=== PATIENT | male | born 1995 | race Caucasian/White ===

== ENCOUNTER 2023-04-01 18:19 | Emergency (ER) | payer BC, SELFPAY ==
[2023-04-01 18:30] VITALS: BP 145/76; PULSE 112; RESP 18; TEMP 37; O2SAT 100
--- NOTE | 2023-04-01 18:41 | ED.URI ---
HPI - URI/Sore Throat General Chief Complaint: Upper Respiratory Infection Stated Complaint: Congestion,Cough,Headache Source: patient Mode of arrival: ambulatory Limitations: no limitations History of Present Illness HPI Narrative: 27-year-old male presents to [facility] with complaints of sinus pressure, headache, nasal congestion, body aches and dry cough for the past 2-3 days. Patient reports that his daughter recently had similar symptoms. Patient has been taking [id number] Mucinex and ibuprofen with minimal relief. Patient is a nonsmoker. Patient denies recent travel. Patient denies nausea vomiting, diarrhea, shortness of breath or wheezing. MD elicited complaint: rhinorrhea and nasal congestion Onset (ago): day(s) (3) Severity: mild Able to tolerate fluids by mouth: Yes Exacerbating factors: nothing Relieving factors: nothing Context: sick contacts Treatments prior to arrival: ibuprofen and cold medicine Related Data Home Medications Medication Instructions Recorded Confirmed fluoxetine 20 mg capsule 20 mg PO DAILY 04/01/23 04/01/23 Allergies Allergy/AdvReac Type Severity Reaction Status Date / Time No Known Allergies Allergy Unverified 05/09/18 14:15 Review of Systems Constitutional: Constitutional: Reports chills, Denies fatigue, Denies fever(s) and Denies weakness ENT: Denies vertigo, Denies dizziness, Denies epistaxis, Reports nasal congestion and Denies sore throat Cardiovascular: Cardiovascular: Denies chest pain Respiratory: Respiratory: Reports cough, Denies dyspnea and Denies wheezing Gastrointestinal: Gastrointestinal: Denies abdominal pain, Denies diarrhea, Denies nausea and Denies vomiting Genitourinary: Genitourinary: Denies dysuria Musculoskeletal: Musculoskeletal: Denies arthralgias and Denies joint swelling Integumentary/Breasts: Skin/Breast: Denies rash PMFSH Comments At time of signature, I agree with nursing past medical, surgical, social and family history. There is no relevant family history pertinent to the presenting complaint. Exam Const: General: healthy appearing and no acute distress Nutritional Appearance: well nourished Orientation/consciousness: patient oriented x3 Limitations: no limitations HENMT: Head: normal to inspection Ears: external ears normal, TM's normal bilaterally and EAC's normal Face/Nose/Sinus: Normal external nose present Mouth: Yes Normal oral and palatal mucosa present and Yes moist mucous membranes Teeth and gingiva: dentition normal Throat: posterior oropharynx normal and uvula midline Other: Moderate nasal congestion noted Eyes: Conjunctivae: conjunctivae normal Neck: Neck: normal visual inspection Resp: Effort & Inspection: normal respiratory effort and not labored Auscultation: clear to auscultation bilaterally, no crackles, no rales, no rhonchi and no wheezes Cardio: Rate: regular rate Rhythm: regular rhythm Heart sounds: no murmurs Skin: General skin exam: normal color Rashes: no rashes Neuro: General: patient oriented x3 Speech: normal speech Gait exam (Neuro): Normal gait present Psych: Affect: normal affect Attitude: cooperative Course Course Level of Care: Express Care Visit Vital Signs Vital signs: Vital Signs Temperature 37.0 C 04/01/23 18:30 Pulse Rate 112 H 04/01/23 18:30 Respiratory Rate 18 04/01/23 18:30 Blood Pressure 145/76 H 04/01/23 18:30 Pulse Oximetry 100 04/01/23 18:30 Oxygen Delivery Room Air 04/01/23 18:30 Temperature 37.0 C 04/01/23 18:30 Pulse Rate 112 H 04/01/23 18:30 Respiratory Rate 18 04/01/23 18:30 Blood Pressure 145/76 H 04/01/23 18:30 Pulse Oximetry 100 04/01/23 18:30 Oxygen Delivery Room Air 04/01/23 18:30 MDM - URI/Sore Throat MDM Narrative Medical decision making narrative: Instructed patient to continue Claritin and Flonase daily. No antibiotic will be prescribed at this time as I feel symptoms are likely viral.
== END 2023-04-01 18:51 | disposition home or self-care (01) ==
PROVIDERS: Emergency Provider Nurse Practitioner Family; PCP Emergency Medicine
DX: B34.9 Viral infection, unspecified (principal); Z79.899 Other long term (current) drug therapy
CPT/HCPCS: 99213; G0463

== ENCOUNTER 2023-04-05 10:43 | Outpatient (CLI) | payer BC, SELFPAY ==
[2023-04-05 11:21] LABS: Hematocrit 43.5 % (42.0-52.0); Hemoglobin 14.7 g/dL (14.0-18.0); Mean Corpuscular HGB Conc 33.8 g/dl (32-36); Mean Corpuscular Hemoglobin 30.3 pg (26-34); Mean Corpuscular Volume 89.7 fl (80-100); Mean Platelet Volume 10.8 fl (7.4-10.4); Platelet Count Result 233 k/mm3 (150-375); Red Blood Count 4.85 M/mm3 (4.6-6.20); Red Cell Distribution Width 11.9 % (11.5-14.5); White Blood Count 9.4 K/mm3 (4.5-10.0)
[2023-04-05 11:31] LABS: Alanine Aminotransferase 22 U/L (6-50); Albumin Level 4.4 g/dL (3.5-5.1); Alkaline Phosphatase 51 U/L (38-126); Anion Gap 12 mmol/L (8-16); Aspartate Amino Transferase 23 U/L (17-59); Bilirubin,Total 0.7 mg/dL (0.2-1.3); Blood Urea Nitrogen 16 mg/dL (9-20); Calcium 9.1 mg/dL (8.4-10.2); Carbon Dioxide 29 mmol/L (22-30); Chloride 99 mmol/L (98-107); Estimated Glomerular Filt Rate > 60; Glucose 101 mg/dL (65-110); Potassium 3.2 mmol/L (3.4-5.0); Sodium 140 mmol/L (137-145)
[2023-04-05 11:58] LABS: Thyroid Stimulating Hormone 0.552 uIU/mL (0.465-4.680)
[2023-04-05 12:06] LABS: Free T4 Free Thyroxine 1.27 ng/mL (0.78-2.19)
[2023-04-05 12:12] LABS: Creatinine Urine 284.4 mg/dL
[2023-04-05 12:18] LABS: MALB Creatinine Ratio 4.3 mg/g (0-30); Microalbumin Urine Random 12.2 mg/L (0-16.7)
[2023-04-05 13:10] LABS: Appearance Urine Cloudy (Clear); Bacteria Urine None Seen /hpf; Bilirubin Urine Negative (Negative); Blood Urine Negative (Negative); Color Urine Dark Yellow (Yellow); Glucose Urine UA Negative (Negative); Ketones Urine Negative (Negative); Leukocyte Esterase Ur Negative LEU/UL (NEGATIVE); Nitrate Urine Negative (Negative); Non Pathogenic Casts 0-2; Protein Urine Trace mg/dL (Negative); RBC Urine 0-2 /hpf (0-2); Specific Grav Ur 1.029 (1.001-1.035); Squamous Epithelial Cell Urine None seen /hpf (Few); WBC Urine 0-5 /hpf (0-3)
[2023-04-05 13:12] LABS: Add Urine Microscopic? YES
== END 2023-04-05 10:44 | disposition home or self-care (01) ==
LOC: ANHLAB 10:45
PROVIDERS: PCP Emergency Medicine; Visit Provider Emergency Medicine
DX: F41.9 Anxiety disorder, unspecified (principal); K21.00 Gastro-esophageal reflux disease with esophagitis, without bleeding; M54.50 Low back pain, unspecified; N28.9 Disorder of kidney and ureter, unspecified; E87.6 Hypokalemia
CPT/HCPCS: 36415; 80053; 81001; 82043; 82785; 83036; 84439; 84443; 85027; 86003